=== PATIENT | female | born 1995 | race Caucasian/White ===

== ENCOUNTER 2019-06-21 18:54 | Emergency (ER) | payer OTHER ==
[~2019-06-21] VITALS: Ht 167.6 cm; Wt 132.4 kg
[2019-06-21 19:10] VITALS: Ht 167.6 cm; Wt 132.4 kg
[2019-06-21 21:00] VITALS: BP 130/78
== END 2019-06-21 22:46 | disposition home or self-care (01) ==
LOC: ED 18:54
DX: G43.909 Migraine, unspecified, not intractable, without status migrainosus (principal); E28.2 Polycystic ovarian syndrome; Z91.018 Allergy to other foods
CPT/HCPCS: J1885; J2405; J2765; J7030